=== PATIENT | female | born 1950 ===

== ENCOUNTER 2019-02-02 06:43 | Day surgery (SDC) | payer MEDICARE, BC ==
[2019-02-01 11:01] VITALS: BMI 24.7
[2019-02-02] MEDS ORDERED: Phenylephrine 10 mg/ml Inj ONE (07:44)
[2019-02-02] MEDS ORDERED: Propofol 10 mg/ml Inj (20 ML) ONE (08:48)
--- NOTE | 2019-02-02 08:50 | CP.SDSHP ---
Same Day Surgery H & P - History Proposed Procedure: COLONSCOPY Pre-Op Diagnosis: SEE NOTES - Previous Medical/Surgical History Neuro: Backaches, Other Misc: Other Pain: 4.Moderate Pain Previous Surgical History: HYSTRECTOMY - Allergies Allergies: Allergies No Known Allergies Allergy (Verified 02/02/19 07:39) - Physical Exam General Appearance: N Vital Signs: Vital Signs 02/02/19 07:55 Temperature 97.6 F Pulse Rate 66 Respiratory 19 Rate Blood Pressure 135/84 O2 Sat by Pulse 100 Oximetry Mental Status: Alert & Oriented x3 Neuro: WNL Heart: WNL Lungs: WNL GI: Other - {Optional Preform as Required} Breast: WNL Abdomen: Other Rectal: Other Integument: WNL : WNL Ortho: Other ENT: WNL - Impression Pt. Evaluated Today:Candidate for Anesthesia & Procedure: Yes - Date & Time Time: 08:50 Short Stay Discharge - Short Stay Discharge Admitting Diagnosis/Reason for Visit: CHANGE IN BOWEL HABIT Disposition: HOME/ ROUTINE
[2019-02-02] MEDS ORDERED: Belladonna-Phenobarbital PO ONE (09:45)
[2019-02-02 09:55] VITALS: TEMP 96
[2019-02-02 09:56] VITALS: O2SAT 100
[2019-02-02 10:56] VITALS: BP 148/80; PULSE 65; RESP 18
== END 2019-02-02 10:55 | disposition home or self-care (01) ==
LOC: C.ENDO 06:43
PROVIDERS: ATTEND Specialist
DX: K58.9 Irritable bowel syndrome, unspecified (principal); K64.8 Other hemorrhoids
CPT/HCPCS: 45380; 88305; J2370; J2704